=== PATIENT | male | born 1970 | race Hispanic/Latino ===

== ENCOUNTER 2020-03-05 11:21 | Inpatient (IN) | payer OTHER ==
[~2020-03-05] VITALS: Ht 162.6 cm; Wt 76.2 kg
[2020-03-05] MEDS: AZITHROMYCIN 500MG+NS 250ML 250 ML IV SCH (15:00)
[2020-03-05] MEDS: CEFTRIAXONE SODIUM 1 GM IVP SCH (15:00)
[2020-03-05] MEDS ORDERED: ONDANSETRON HCL 4 MG/2 ML VIAL IVP PRN (15:00)
[2020-03-05] MEDS ORDERED: AZITHROMYCIN 250 MG TABLET PO ONE (15:19)
[2020-03-05] MEDS ORDERED: CEFTRIAXONE SODIUM 1 GM ONE (15:19)
[2020-03-05] MEDS ORDERED: SODIUM CHLORIDE 0.9% 50 ML IV ONE (15:21)
[2020-03-05] MEDS ORDERED: GLUCAGON 1MG KIT 1 MG ML IM PRN (18:00)
[2020-03-05] MEDS ORDERED: HYDRALAZINE HCL 20 MG/ML VIAL IV PRN (18:00)
[2020-03-05] MEDS ORDERED: ACETAMINOPHEN 325 MG TAB PO PRN ×2 (18:00)
[2020-03-05] MEDS ORDERED: DEXTROSE 50%-WATER 50 ML DISP.SYRIN IV PRN (18:00)
[2020-03-05 19:15] VITALS: BP 107/66; PULSE 82; RESP 18; TEMP 98
[2020-03-05] MEDS ORDERED: PHARMACY COMMUNICATION MISC SCH (19:45)
[2020-03-05] MEDS: INSULIN HUMULIN R 100 UNIT/ML 3ML SQ SCH (21:00)
[2020-03-05] MEDS: FAMOTIDINE/PF 20 MG/2 ML VIAL IV SCH (22:10)
[2020-03-05 23:47] VITALS: BP 108/64; PULSE 76; RESP 18; TEMP 98.1
[2020-03-06 03:45] VITALS: BP 106/74; PULSE 85; RESP 17; TEMP 98.1
[2020-03-06] MEDS: CEFTRIAXONE SODIUM 1 GM IVP SCH ×2 (05:25→15:45)
[2020-03-06] MEDS: INSULIN HUMULIN R 100 UNIT/ML 3ML SQ SCH ×5 (06:06→20:50)
[2020-03-06 08:00] VITALS: BP 115/67; PULSE 92; RESP 18; TEMP 98.8
[2020-03-06] MEDS ORDERED: ENOXAPARIN SODIUM 30 MG/0.3 ML SQ SCH (09:00)
[2020-03-06] MEDS ORDERED: ENOXAPARIN SODIUM 80 MG/0.8 ML SQ SCH (09:00)
[2020-03-06] MEDS: FAMOTIDINE/PF 20 MG/2 ML VIAL IV SCH ×2 (10:40→20:50)
[2020-03-06 11:45] VITALS: BP 111/61; PULSE 78; RESP 19; TEMP 97.5
--- NOTE | 2020-03-06 15:26 | NUR ---
RD NOTIFICATION Diagnosis: R/U TB, Possible Lung mass as per EMR. Pt with 75gm CCD in [address]. No report of GI distress. PCM malnutrition. A1C 12.4. Pt with SOB x6 mos as per EMR. 8% weight loss over 6 mos. Recommend 60mL ProMod BID. RD to follow up with nutrition education. Please notify RD as additional nutrition concerns arise. Thank you.
[2020-03-06] MEDS: AZITHROMYCIN 500MG+NS 250ML 250 ML IV SCH (15:45)
[2020-03-06 16:00] VITALS: BP 113/67; PULSE 78; RESP 18; TEMP 97.8
--- NOTE | 2020-03-06 18:18 | NUR ---
SPOKE TO PATIENT VIA PHONE FOR DC PLANNING LIVES WITH [facility], WHO WILL PROVID TRANSPORT HOME, NO DME, NO HOME HEALTH, HAS PROVIDE SERVICES > 30 HRS WEEK, BUT NOT SURE, DISABLE SEOCND OT POOR VISION FOR SEVERAL YEARS. NO GLUCOMETER, NEBULIZER, OXYGEN, WKR, ETC. DCP IS HOME CM TO FOLLOW. CXR OMINOUS WITH DIAGNOSTICS PENDING Addendum: 03/06/20 at 1824 by LANDON PEDRO RN CM Amended: Links added.
[2020-03-06 19:54] VITALS: BP 108/66; PULSE 79; RESP 20; TEMP 99.3
[2020-03-06] MEDS: INSULIN GLARGINE 100 UNITS/ML 10 ML VIAL SQ SCH (20:57)
[2020-03-06 23:43] VITALS: BP 100/59; PULSE 87; RESP 20; TEMP 102.2
[2020-03-07] MEDS: CEFTRIAXONE SODIUM 1 GM IVP SCH ×2 (03:05→16:15)
[2020-03-07 04:11] VITALS: BP 105/68; PULSE 70; RESP 18; TEMP 97.5
[2020-03-07] MEDS: INSULIN HUMULIN R 100 UNIT/ML 3ML SQ SCH ×7 (05:53→20:05)
[2020-03-07] MEDS: INSULIN GLARGINE 100 UNITS/ML 10 ML VIAL SQ SCH ×2 (06:34→20:37)
[2020-03-07] MEDS ORDERED: ENOXAPARIN SODIUM 80 MG/0.8 ML SQ SCH (09:00)
[2020-03-07 09:35] VITALS: BP 103/60; PULSE 73; RESP 20; TEMP 97.5
[2020-03-07] MEDS: ENOXAPARIN SODIUM 40 MG/0.4 ML SYRINGE SQ SCH (10:28)
[2020-03-07] MEDS: FAMOTIDINE/PF 20 MG/2 ML VIAL IV SCH ×2 (10:28→20:31)
[2020-03-07] MEDS: ISONIAZID 300 MG TAB PO SCH (12:56)
[2020-03-07] MEDS: PYRIDOXINE HCL 50 MG TABLET PO SCH (12:56)
[2020-03-07] MEDS: RIFAMPIN 300 MG CAPSULE PO SCH ×2 (12:56→23:42)
[2020-03-07] MEDS: ETHAMBUTOL HCL 400 MG TABLET PO SCH (12:57)
[2020-03-07 13:18] VITALS: BP 111/66; PULSE 93; RESP 20; TEMP 98.8
[2020-03-07 16:49] VITALS: BP 110/65; PULSE 86; RESP 18; TEMP 102.9
--- NOTE | 2020-03-07 19:50 | NUR ---
PM Assessment Received pt pleasantly conversant stating he is feeling a lot better at this time, routine assessment done, plan of care discuss, reminded too remain in his room as reported (+) for TB, agreed & always kept his mask on when someone comes in the room. Pt IV access noted leaking, discontinued aseptically with catheter tip intact, new access initiated x 1 attempt aseptically with good blood return. Pt currently denies discomfort.
[2020-03-07 20:50] VITALS: BP 103/64; PULSE 74; RESP 19; TEMP 98.6
[2020-03-07 23:51] VITALS: BP 120/72; PULSE 82; RESP 20; TEMP 99.3
[2020-03-08] MEDS: CEFTRIAXONE SODIUM 1 GM IVP SCH (03:23)
[2020-03-08 03:55] VITALS: BP 103/59; PULSE 83; RESP 20; TEMP 102.4
--- NOTE | 2020-03-08 03:58 | NUR ---
Re: AFB sputum collection Phoned Laboratory spoke with Satya to verify if we have completed sputum for AFB collection, stated still pending 2 more. Approach pt & instructed / provided with sputum specimen cup to collect phlegm not saliva & notify me once available.
--- NOTE | 2020-03-08 06:06 | NUR ---
Re: AFB sputum Collected x2 sputum for my shift, pending confirmation from laboratory if specimen is acceptable. Spoke with Queen from the lab to let us know if we need to re-collect.
--- NOTE | 2020-03-08 06:07 | NUR ---
Re: BS 60 Reported BS 60, pt re-assess, asymptomatic, [place] juice given at this time.
[2020-03-08] MEDS: INSULIN HUMULIN R 100 UNIT/ML 3ML SQ SCH ×7 (06:09→21:00)
[2020-03-08] MEDS: INSULIN GLARGINE 100 UNITS/ML 10 ML VIAL SQ SCH ×2 (07:30→21:00)
[2020-03-08 08:41] VITALS: BP 102/67; PULSE 75; RESP 21; TEMP 98.2
[2020-03-08 12:32] VITALS: BP 104/65; PULSE 69; RESP 20; TEMP 98.9
[2020-03-08] MEDS: FAMOTIDINE/PF 20 MG/2 ML VIAL IV SCH ×2 (13:03→21:37)
[2020-03-08] MEDS: PYRAZINAMIDE 500 MG TABLET PO SCH (13:04)
[2020-03-08] MEDS: RIFAMPIN 300 MG CAPSULE PO SCH ×2 (13:05→21:37)
[2020-03-08] MEDS: ZOSYN 3.375GM+NS 50ML 50 ML IV SCH ×2 (13:05→18:32)
[2020-03-08] MEDS: ETHAMBUTOL HCL 400 MG TABLET PO SCH (13:06)
[2020-03-08] MEDS: PYRIDOXINE HCL 50 MG TABLET PO SCH (13:07)
[2020-03-08] MEDS: ISONIAZID 300 MG TAB PO SCH (13:07)
[2020-03-08] MEDS: ENOXAPARIN SODIUM 40 MG/0.4 ML SYRINGE SQ SCH (13:08)
[2020-03-08 19:11] VITALS: BP 105/67; PULSE 85; RESP 20; TEMP 98.6
[2020-03-08 19:30] VITALS: BP 111/73; PULSE 69; RESP 18; TEMP 99.1
[2020-03-08 23:41] VITALS: BP 101/74; PULSE 73; RESP 18; TEMP 99
[2020-03-09] MEDS: ZOSYN 3.375GM+NS 50ML 50 ML IV SCH ×3 (03:01→18:10)
[2020-03-09 04:00] VITALS: BP 108/79; PULSE 76; RESP 18; TEMP 98.3
[2020-03-09] MEDS: INSULIN HUMULIN R 100 UNIT/ML 3ML SQ SCH ×7 (07:30→21:00)
[2020-03-09] MEDS: INSULIN GLARGINE 100 UNITS/ML 10 ML VIAL SQ SCH ×2 (07:30→21:56)
[2020-03-09 09:22] VITALS: BP 96/65; PULSE 84; RESP 16; TEMP 98.8
[2020-03-09] MEDS: ETHAMBUTOL HCL 400 MG TABLET PO SCH (10:25)
[2020-03-09] MEDS: ENOXAPARIN SODIUM 40 MG/0.4 ML SYRINGE SQ SCH (10:26)
[2020-03-09] MEDS: PYRAZINAMIDE 500 MG TABLET PO SCH (10:26)
[2020-03-09] MEDS: ISONIAZID 300 MG TAB PO SCH (10:26)
[2020-03-09] MEDS: RIFAMPIN 300 MG CAPSULE PO SCH ×2 (10:27→22:16)
[2020-03-09] MEDS: FAMOTIDINE/PF 20 MG/2 ML VIAL IV SCH ×2 (10:27→21:35)
[2020-03-09] MEDS: PYRIDOXINE HCL 50 MG TABLET PO SCH (10:27)
[2020-03-09 13:36] VITALS: BP 102/64; PULSE 72; RESP 20; TEMP 97.9
[2020-03-09 20:00] VITALS: BP_SYST 100; BP_SYST 105; BP_DIAS 61; BP_DIAS 67; PULSE 62; PULSE 70; RESP 18; TEMP 97.7; TEMP 97.9
[2020-03-10] VITALS: BP 104/56; PULSE 74; RESP 18; TEMP 97.7
[2020-03-10] MEDS: ZOSYN 3.375GM+NS 50ML 50 ML IV SCH ×3 (03:33→18:33)
[2020-03-10 04:00] VITALS: BP_SYST 110; BP_SYST 136; BP_DIAS 67; BP_DIAS 70; PULSE 68; PULSE 83; RESP 18; TEMP 97.7
[2020-03-10] MEDS: INSULIN HUMULIN R 100 UNIT/ML 3ML SQ SCH ×7 (06:28→21:00)
[2020-03-10] MEDS: INSULIN GLARGINE 100 UNITS/ML 10 ML VIAL SQ SCH ×2 (07:50→21:21)
[2020-03-10 08:49] VITALS: BP 108/65; PULSE 71; RESP 18; TEMP 97.5
[2020-03-10] MEDS: ENOXAPARIN SODIUM 40 MG/0.4 ML SYRINGE SQ SCH (09:30)
[2020-03-10] MEDS: FAMOTIDINE/PF 20 MG/2 ML VIAL IV SCH ×2 (09:31→19:51)
[2020-03-10] MEDS: PYRAZINAMIDE 500 MG TABLET PO SCH (09:31)
[2020-03-10] MEDS: RIFAMPIN 300 MG CAPSULE PO SCH (10:24)
[2020-03-10] MEDS: ETHAMBUTOL HCL 400 MG TABLET PO SCH (10:24)
[2020-03-10] MEDS: ISONIAZID 300 MG TAB PO SCH (10:24)
[2020-03-10] MEDS: PYRIDOXINE HCL 50 MG TABLET PO SCH (10:25)
[2020-03-10 11:58] VITALS: BP 103/64; PULSE 76; RESP 20; TEMP 97.9
--- NOTE | 2020-03-10 15:26 | NUR ---
RD FOLLOW UP Pt continues to tolerate 75gm CCD diet order. 60mL ProMod protein supplementation in place. Pt positive for Pulmonary TB. Pending COVID test result. H/H 7.2/23.6, Alk 223, Alb 1.6. Recommend Glucerna BID RD to continue to monitor. Please notify as additional nutrition concerns arise. Thank you.
[2020-03-10] MEDS ORDERED: EPOETIN ALFA 10,000 UNIT/ML VIAL SQ SCH (15:30)
[2020-03-10] MEDS ORDERED: COMPOUND IV MISC 1 EACH IVSOLN MISC PRN (16:15)
[2020-03-10 16:44] VITALS: BP 109/78; PULSE 74; RESP 20; TEMP 97.9
[2020-03-10] MEDS: IRON SUCROSE COMPLEX 100 MG in SODIUM CHLORIDE 0.9% 50 ML IV SCH (18:35)
[2020-03-10 19:30] VITALS: BP 117/79; PULSE 72; RESP 18; TEMP 97.9
[2020-03-11] VITALS: BP 112/68; PULSE 69; RESP 18; TEMP 98
[2020-03-11] MEDS: RIFAMPIN 300 MG CAPSULE PO SCH ×3 (00:36→21:58)
[2020-03-11] MEDS: ZOSYN 3.375GM+NS 50ML 50 ML IV SCH ×3 (03:07→18:30)
[2020-03-11 04:00] VITALS: BP 100/63; PULSE 71; RESP 18; TEMP 99.3
--- NOTE | 2020-03-11 07:15 | NUR ---
Shan MOTOR ANALYST here to do his rounds informed him of patient's low blood sugar level this morning and a few days ago. informed patient's fingerstick in the 100, no more then 135. Orders received to change Lantus 10 units with breakfast only. Patient made aware verbalized understanding.
[2020-03-11] MEDS: INSULIN GLARGINE 100 UNITS/ML 10 ML VIAL SQ SCH (07:26)
[2020-03-11] MEDS: INSULIN HUMULIN R 100 UNIT/ML 3ML SQ SCH ×7 (07:30→20:59)
[2020-03-11 08:00] VITALS: BP 106/64; PULSE 77; RESP 17; TEMP 98.4
[2020-03-11] MEDS ORDERED: INSULIN GLARGINE 100 UNITS/ML 10 ML VIAL SQ SCH (08:00)
[2020-03-11] MEDS: PYRAZINAMIDE 500 MG TABLET PO SCH (08:46)
[2020-03-11] MEDS: FAMOTIDINE/PF 20 MG/2 ML VIAL IV SCH ×2 (08:46→20:58)
[2020-03-11] MEDS: ENOXAPARIN SODIUM 40 MG/0.4 ML SYRINGE SQ SCH (08:46)
[2020-03-11] MEDS: ETHAMBUTOL HCL 400 MG TABLET PO SCH (11:06)
[2020-03-11] MEDS: ISONIAZID 300 MG TAB PO SCH (11:06)
[2020-03-11] MEDS: PYRIDOXINE HCL 50 MG TABLET PO SCH (11:06)
--- NOTE | 2020-03-11 11:56 | NUR ---
DR. JOE SPOKE TO MD VIA TELEPHONE REGARDING CONSULT. MD STATES NO GI INTERVENTIONS AT THIS TIME UNTIL PATIENT COMPLETES TREATMENT CURRENT RESPIRATORY INFECTION. DR. JOE ALSO ASKED TO ORDER REPEAT COVID TEST.
[2020-03-11 12:00] VITALS: BP 115/69; PULSE 68; RESP 18; TEMP 97.9
--- NOTE | 2020-03-11 12:30 | NUR ---
DR. MALINDA WINKLER ROUNDING AT THIS TIME. INFORMED MD THAT INFECTION CONTROL NURSE German LY RN STATES THAT LOCAL HEALTH DEPARTMENT RECOMMENDS RIFAMPIN DOSE TO BE DECREASED TO 300MG. DR. PETTY ALSO STATES THAT REPEAT COVID TEST RECOMMENDED BY DR. JOE IS NOT NEEDED.
--- NOTE | 2020-03-11 14:52 | NUR ---
CM Note[facility] for [facility] of care. Verbalized will see patient once dc from hospital. Patient to call Health Dept to schedule appointment once dc'd. Given address: [address] [place] [id number] ph: . Verbalized they are open tomorrow, but close 03/13-03/15, clinic opens again 03/16. Patient given information and instructions, verbalized understanding, will call health dept to schedule appointment once pt ready to DC. Primary nurse aware. CM to cont to follow up.
[2020-03-11 16:00] VITALS: BP 104/69; PULSE 72; RESP 19; TEMP 97.5
[2020-03-11] MEDS: IRON SUCROSE COMPLEX 100 MG in SODIUM CHLORIDE 0.9% 50 ML IV SCH (18:30)
[2020-03-11 20:00] VITALS: BP 110/76; PULSE 82; RESP 18; TEMP 97.1
[2020-03-12] VITALS: BP 105/63; PULSE 74; RESP 17; TEMP 98.4
[2020-03-12] MEDS: ZOSYN 3.375GM+NS 50ML 50 ML IV SCH ×3 (02:33→18:45)
[2020-03-12 04:00] VITALS: BP 98/57; PULSE 78; RESP 20; TEMP 97.6
[2020-03-12] MEDS: INSULIN HUMULIN R 100 UNIT/ML 3ML SQ SCH ×7 (07:11→20:47)
[2020-03-12 07:35] VITALS: BP 103/67; PULSE 70; RESP 16; TEMP 97.9
[2020-03-12] MEDS: INSULIN GLARGINE 100 UNITS/ML 10 ML VIAL SQ SCH (07:49)
[2020-03-12] MEDS: FAMOTIDINE/PF 20 MG/2 ML VIAL IV SCH ×2 (08:03→20:29)
[2020-03-12] MEDS: PYRAZINAMIDE 500 MG TABLET PO SCH (08:03)
[2020-03-12] MEDS: ENOXAPARIN SODIUM 40 MG/0.4 ML SYRINGE SQ SCH (08:11)
[2020-03-12 10:45] VITALS: BP 106/67; PULSE 81; RESP 18; TEMP 97.7
[2020-03-12 10:52] VITALS: BP_SYST 106; BP_SYST 139; BP_DIAS 67; BP_DIAS 74; PULSE 81; PULSE 86; RESP 18; TEMP 97.7
[2020-03-12] MEDS: RIFAMPIN 300 MG CAPSULE PO SCH ×2 (11:04→20:29)
[2020-03-12] MEDS: PYRIDOXINE HCL 50 MG TABLET PO SCH (11:04)
[2020-03-12] MEDS: ETHAMBUTOL HCL 400 MG TABLET PO SCH (11:04)
[2020-03-12] MEDS: ISONIAZID 300 MG TAB PO SCH (11:04)
[2020-03-12] MEDS: IRON SUCROSE COMPLEX 100 MG in SODIUM CHLORIDE 0.9% 50 ML IV SCH (17:00)
[2020-03-12 19:10] VITALS: BP 114/70; PULSE 74; RESP 18; TEMP 98.1
[2020-03-13] VITALS (7 sets, daily range): BP systolic 102–121; BP diastolic 65–74; PULSE 69–80; RESP 14–19; TEMP 97.5–98.1
[2020-03-13] MEDS: ZOSYN 3.375GM+NS 50ML 50 ML IV SCH ×3 (03:20→18:45)
--- NOTE | 2020-03-13 03:29 | NUR ---
ROUNDS PATIENT RESTING IN BED WITH OU CLOSED. EASILY AROUSED. NO COMPLAINTS OF PAIN VOICED AT THIS TIME. VITALS STABLE. AFEBRILE. RESP EVEN AND UNLABORED. NO SOB NOTED. UP AD JESSICA. CALL LIGHT WITHIN REACH. AIRBORNE PRECAUTIONS IN PLACE. NO SIGNS OF DISTRESS NOTED. CALL LIGHT WITHIN REACH. WILL CONTINUE TO BE OBSERVED. Addendum: 03/13/20 at 0331 by GILLIAN GRANT RN RN Amended: Links added.
[2020-03-13] MEDS: INSULIN HUMULIN R 100 UNIT/ML 3ML SQ SCH ×7 (07:30→21:00)
[2020-03-13] MEDS: RIFAMPIN 300 MG CAPSULE PO SCH ×2 (09:24→23:08)
[2020-03-13] MEDS: PYRIDOXINE HCL 50 MG TABLET PO SCH (09:25)
[2020-03-13] MEDS: ETHAMBUTOL HCL 400 MG TABLET PO SCH (09:25)
[2020-03-13] MEDS: ISONIAZID 300 MG TAB PO SCH (09:25)
[2020-03-13] MEDS: PYRAZINAMIDE 500 MG TABLET PO SCH (09:25)
[2020-03-13] MEDS: FAMOTIDINE/PF 20 MG/2 ML VIAL IV SCH ×2 (09:25→23:08)
[2020-03-13] MEDS: ENOXAPARIN SODIUM 40 MG/0.4 ML SYRINGE SQ SCH (09:31)
[2020-03-13] MEDS: INSULIN GLARGINE 100 UNITS/ML 10 ML VIAL SQ SCH (09:35)
[2020-03-13] MEDS: IRON SUCROSE COMPLEX 100 MG in SODIUM CHLORIDE 0.9% 50 ML IV SCH (15:20)
[2020-03-14] MEDS: ZOSYN 3.375GM+NS 50ML 50 ML IV SCH ×3 (03:08→18:45)
[2020-03-14 04:28] VITALS: BP 132/71; PULSE 71; RESP 18; TEMP 97.7
--- NOTE | 2020-03-14 05:02 | NUR ---
CRITICAL LAB VALUE PAGED ONCALL. SPOKE WITH KAPIL FINE, WAS ORDERED TO CONSULT ERIN FOR CONT ELEVATED PLT COUNT. ORDER PLACED IN [facility], WILL PASS ON REPORT TO DAY SHIFT NURSE.
[2020-03-14] MEDS: INSULIN HUMULIN R 100 UNIT/ML 3ML SQ SCH ×7 (06:38→21:00)
[2020-03-14] MEDS: FAMOTIDINE/PF 20 MG/2 ML VIAL IV SCH ×2 (08:39→22:20)
[2020-03-14] MEDS: PYRAZINAMIDE 500 MG TABLET PO SCH (08:39)
[2020-03-14] MEDS: ENOXAPARIN SODIUM 40 MG/0.4 ML SYRINGE SQ SCH (08:40)
[2020-03-14] MEDS ORDERED: CYANOCOBALAMIN (VITAMIN B-12) 1,000 MCG TABLET PO SCH (10:15)
[2020-03-14] MEDS: PYRIDOXINE HCL 50 MG TABLET PO SCH (11:14)
[2020-03-14] MEDS: RIFAMPIN 300 MG CAPSULE PO SCH ×2 (11:14→22:20)
[2020-03-14] MEDS: ISONIAZID 300 MG TAB PO SCH (11:15)
[2020-03-14] MEDS: ETHAMBUTOL HCL 400 MG TABLET PO SCH (11:21)
[2020-03-14 11:48] VITALS: BP 119/77; PULSE 93; RESP 18; TEMP 98.1
[2020-03-14] MEDS: INSULIN GLARGINE 100 UNITS/ML 10 ML VIAL SQ SCH (11:54)
[2020-03-14 16:00] VITALS: BP 115/69; PULSE 71; RESP 19; TEMP 97.5
[2020-03-14] MEDS ORDERED: VITAMIN B COMPLEX 1 CAPSULE PO SCH (17:45)
[2020-03-14] MEDS: IRON SUCROSE COMPLEX 100 MG in SODIUM CHLORIDE 0.9% 50 ML IV SCH (18:04)
--- NOTE | 2020-03-14 19:50 | NUR ---
LEFT EYE PROSTHESIS Addendum: 03/14/20 at 2355 by MAXIM CLIFTON RN RN Amended: Links added.
[2020-03-14 21:16] VITALS: BP 120/75; PULSE 73; RESP 19; TEMP 98.1
[2020-03-15 00:09] VITALS: BP 125/73; PULSE 80; RESP 20; TEMP 97.8
[2020-03-15] MEDS: ZOSYN 3.375GM+NS 50ML 50 ML IV SCH ×3 (02:33→18:34)
[2020-03-15 04:36] VITALS: BP 125/73; PULSE 74; RESP 20; TEMP 98.1
[2020-03-15] MEDS: INSULIN HUMULIN R 100 UNIT/ML 3ML SQ SCH ×7 (05:57→16:30)
[2020-03-15 08:00] VITALS: BP 108/61; PULSE 72; RESP 17; TEMP 97.7
--- NOTE | 2020-03-15 08:00 | NUR ---
AM SHIFT ASSESSMENT. ANXIOUS TO GO HOME AND ASKING ABOUT TB MEDICATIONS.
[2020-03-15] MEDS: RIFAMPIN 300 MG CAPSULE PO SCH ×2 (09:49→21:47)
[2020-03-15] MEDS: VITAMIN B COMPLEX 1 CAPSULE PO SCH (09:50)
[2020-03-15] MEDS: FOLIC ACID/VITAMIN B COMP W-C 1 CAP TAB PO SCH (09:50)
[2020-03-15] MEDS: PYRIDOXINE HCL 50 MG TABLET PO SCH (09:51)
[2020-03-15] MEDS: FAMOTIDINE/PF 20 MG/2 ML VIAL IV SCH ×2 (09:51→21:47)
[2020-03-15] MEDS: ISONIAZID 300 MG TAB PO SCH (09:51)
[2020-03-15] MEDS: ETHAMBUTOL HCL 400 MG TABLET PO SCH (09:51)
[2020-03-15] MEDS: PYRAZINAMIDE 500 MG TABLET PO SCH (09:52)
[2020-03-15] MEDS: ENOXAPARIN SODIUM 40 MG/0.4 ML SYRINGE SQ SCH (09:53)
[2020-03-15] MEDS: INSULIN GLARGINE 100 UNITS/ML 10 ML VIAL SQ SCH (10:02)
[2020-03-15 12:00] VITALS: BP 105/69; PULSE 85; RESP 17; TEMP 97.9
[2020-03-15 16:00] VITALS: BP 109/76; PULSE 80; RESP 17; TEMP 98.1
[2020-03-15] MEDS: IRON SUCROSE COMPLEX 100 MG in SODIUM CHLORIDE 0.9% 50 ML IV SCH (17:27)
--- NOTE | 2020-03-15 18:08 | NUR ---
REMAINS ON AIRBORNE ISOLATION, N/C TODAY, MOVES ABOUT IN ROOM. GOOD APPETITE
[2020-03-15 21:09] VITALS: BP 117/72; PULSE 82; RESP 20; TEMP 98.8
[2020-03-15] MEDS ORDERED: SODIUM CHLORIDE 0.9% 250 ML IV ONE (21:43)
[2020-03-16 00:58] VITALS: BP 106/64; PULSE 74; RESP 20; TEMP 98.1
[2020-03-16] MEDS: ZOSYN 3.375GM+NS 50ML 50 ML IV SCH (03:02)
[2020-03-16 05:37] VITALS: BP 109/65; PULSE 71; RESP 19; TEMP 98.1
[2020-03-16] MEDS: INSULIN HUMULIN R 100 UNIT/ML 3ML SQ SCH ×2 (05:47)
[2020-03-16] MEDS: INSULIN GLARGINE 100 UNITS/ML 10 ML VIAL SQ SCH (09:26)
[2020-03-16] MEDS: VITAMIN B COMPLEX 1 CAPSULE PO SCH (09:27)
[2020-03-16] MEDS: FAMOTIDINE/PF 20 MG/2 ML VIAL IV SCH (09:27)
[2020-03-16] MEDS: FOLIC ACID/VITAMIN B COMP W-C 1 CAP TAB PO SCH (09:28)
[2020-03-16] MEDS: PYRAZINAMIDE 500 MG TABLET PO SCH (09:28)
[2020-03-16] MEDS: ENOXAPARIN SODIUM 40 MG/0.4 ML SYRINGE SQ SCH (09:29)
--- NOTE | 2020-03-16 10:15 | NUR ---
DISCHARGED pt discharged via wheelchair with home instructions states he will follow up with [facility] today Addendum: 03/16/20 at 1319 by CAIN JEFFERS RN RN Amended: Links added.
--- NOTE | 2020-03-16 10:15 | NUR ---
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
== END 2020-03-16 10:25 | disposition home or self-care (01) | DRG 871 ==
LOC: EDH 11:21 → EDHIP 14:56 → 3CH 19:12
PROVIDERS: ADMIT Hospitalist; ATTEND Hospitalist
DX: A41.9 Sepsis, unspecified organism (principal); J96.91 Respiratory failure, unspecified with hypoxia; J18.9 Pneumonia, unspecified organism; A15.0 Tuberculosis of lung; C94.6 Myelodysplastic disease, not elsewhere classified; E11.9 Type 2 diabetes mellitus without complications; I10 Essential (primary) hypertension; E78.5 Hyperlipidemia, unspecified; D50.9 Iron deficiency anemia, unspecified; R63.4 Abnormal weight loss; R53.81 Other malaise; Z20.828 Contact with and (suspected) exposure to other viral communicable diseases; Z68.28 Body mass index [BMI] 28.0-28.9, adult; Z87.891 Personal history of nicotine dependence; Z83.3 Family history of diabetes mellitus

== ENCOUNTER 2021-07-25 06:20 | Inpatient (IN) | payer OTHER ==
[~2021-07-25] VITALS: Ht 157.5 cm; Wt 92.9 kg
[~2021-07-25 06:20] MED LIST: ATOR20TA65 PO; LOSA25TA41 PO; METF-444 PO
[2021-07-25 06:38] LABS: BASOPHILS % (AUTO) 0.4 % (0.0-5.0); EOSINOPHILS % (AUTO) 0.4 % (0.0-8.0); HEMATOCRIT 42.3 % (42-54); LYMPHOCYTES % (AUTO) 10.3 % (21.0-51.0); MEAN CORPUSCULAR HEMOGLOBIN 28.9 pg (27.0-33.0); MEAN CORPUSCULAR HGB CONC 33.3 g/dL (32.0-36.0); MEAN CORPUSCULAR VOLUME 86.7 fL (79-99); MONOCYTES % (AUTO) 4.9 % (3.0-13.0); NEUTROPHILS % (AUTO) 83.6 % (40.0-77.0); PLATELET COUNT (AUTO) 278 K/uL (130-400); RED BLOOD CELL COUNT(AUTO) 4.88 MIL/uL (4.50-6.20); RED CELL DISTRIBUTION WIDTH 13.2 % (11.0-15.5); WHITE BLOOD COUNT (AUTO) 18.4 K/uL (4.8-10.8)
[2021-07-25] MEDS ORDERED: ONDANSETRON 4MG INJ ONE (06:45)
[2021-07-25] MEDS ORDERED: MORPHINE 4 MG SYG ONE (06:45)
[2021-07-25 06:53] LABS: ALBUMIN 3.8 g/dL (3.5-5.0); CREATININE 2.2 mg/dL (0.5-1.5); POTASSIUM 4.3 mmol/L (3.5-5.1)
[2021-07-25 06:56] LABS: BILIRUBIN,TOTAL 0.4 mg/dL (0.2-1.0); TOTAL PROTEIN, SERUM 8.4 g/dL (6.0-8.3)
[2021-07-25] MEDS ORDERED: ONDANSETRON 4MG INJ IVP ONE (07:00)
[2021-07-25] MEDS ORDERED: MORPHINE 4 MG SYG IV ONE (07:00)
[2021-07-25 07:24] LABS: APPEARANCE,URINE Cloudy (CLEAR); BILIRUBIN,URINE Negative (NEGATIVE); COLOR,URINE Yellow (YELLOW); GLUCOSE, URINE (UA) >=1000 mg/dL (NEGATIVE); KETONES,URINE Negative (NEGATIVE); LEUKOCYTE ESTERASE ,URINE Trace (NEGATIVE); NITRATE,URINE Negative (NEGATIVE); OCCULT BLOOD,URINE Small (NEGATIVE); PROTEIN,URINE 300 mg/dL (NEGATIVE); UROBILINOGEN,URINE 0.2 mg/dL (0.2-1.0)
[2021-07-25 07:47] LABS: BACTERIA,URINE Moderate /HPF (None Seen)
[2021-07-25] MEDS ORDERED: FENTANYL CITRATE PF 50 MCG/1 ML 2ML VIAL ONE (09:07)
[2021-07-25] MEDS ORDERED: ONDANSETRON 4MG INJ IV PRN (09:30)
[2021-07-25] MEDS ORDERED: DiphenhydrAMINE HCL 50 MG/ML VIAL IV PRN (09:30)
[2021-07-25] MEDS ORDERED: LACTULOSE 20 GM/30 ML UDCUP PO PRN (09:30)
[2021-07-25] MEDS ORDERED: GUAIFENESIN-DM 200/20 MG 10 ML PO PRN (09:30)
[2021-07-25] MEDS ORDERED: CEFTRIAXONE 1G VIAL IVP ONE (09:30)
[2021-07-25] MEDS ORDERED: DIPHENHYDRAMINE HCL 25 MG CAPSULE PO PRN (09:30)
[2021-07-25] MEDS ORDERED: FENTANYL CITRATE PF 50 MCG/1 ML 2ML VIAL IVP ONE (09:30)
[2021-07-25] MEDS ORDERED: ACETAMINOPHEN 325 MG TAB PO PRN (09:30)
[2021-07-25] MEDS ORDERED: DEXTROSE 50%-WATER 50 ML DISP.SYRIN IV PRN (09:30)
[2021-07-25] MEDS ORDERED: GLUCAGON 1MG KIT 1 MG ML IM PRN (09:30)
[2021-07-25] MEDS ORDERED: HYDRALAZINE 20MG/ML VIAL IV PRN (09:30)
[2021-07-25] MEDS ORDERED: 0.9%NACL 1000ML 1,000 ML IV ONE (09:56)
[2021-07-25 10:15] LABS: AMPHET/METH SCREEN,URINE NEGATIVE (NEGATIVE); BARBITURATE SCREEN, URINE NEGATIVE (NEGATIVE); BENZODIAZEPINES SCREEN,URINE NEGATIVE (NEGATIVE); CANNABINOID SCREEN,URINE NEGATIVE (NEGATIVE); COCAINE SCREEN,URINE NEGATIVE (NEGATIVE); OPIATE SCREEN,URINE NEGATIVE (NEGATIVE); PHENCYCLIDINE SCREEN,URINE NEGATIVE (NEGATIVE)
[2021-07-25 10:16] LABS: HEMOGLOBIN A1C 11.3 % (4.0-6.0)
[2021-07-25 10:17] LABS: CHOLESTEROL 338 mg/dL (<200); HDL CHOLESTEROL 51 mg/dL (29-71); LDL DIRECT 200 mg/dL (0-99); TRIGLYCERIDES 386 mg/dL (30-200)
[2021-07-25] MEDS: CEFTRIAXONE 1G VIAL IV SCH (11:04)
[2021-07-25] MEDS: FAMOTIDINE 20MG VIAL IV SCH (11:05)
[2021-07-25] MEDS ORDERED: MORPHINE 2 MG SYG ONE (11:16)
[2021-07-25] MEDS: ACETAMINOPHEN 325 MG TAB PO PRN (11:23)
[2021-07-25] MEDS ORDERED: MORPHINE 2 MG SYG IVP PRN (11:30)
[2021-07-25] MEDS: INSULIN HUMULIN R 100 UNIT/ML 3ML SQ SCH ×5 (14:20→21:49)
[2021-07-25] MEDS ORDERED: HYDROMORPHONE 1 MG INJ IVP PRN (15:00)
[2021-07-25] MEDS: KETOROLAC 15MG/ML VIAL (15MG/ML) IV PRN (15:16)
[2021-07-25 16:00] VITALS: BP 130/74
[2021-07-25 16:07] LABS: CREATININE,URINE RANDOM 114 mg/dL (30-135); SODIUM,URINE RANDOM 31 mmol/l (40-220)
[2021-07-25] MEDS: GUAIFENESIN-DM 200/20 MG 10 ML PO SCH ×2 (16:09→21:30)
[2021-07-25 20:00] VITALS: BP 144/79
[2021-07-25] MEDS: INSULIN GLARGINE 100 UNITS/ML 10 ML VIAL SQ SCH (21:50)
[2021-07-25 23:36] VITALS: BP 161/78
[2021-07-26 03:50] VITALS: BP 126/78
[2021-07-26] MEDS: GUAIFENESIN-DM 200/20 MG 10 ML PO SCH ×4 (04:10→22:25)
[2021-07-26] MEDS: KETOROLAC 15MG/ML VIAL (15MG/ML) IV PRN (04:13)
[2021-07-26 04:51] LABS: BASOPHILS % (AUTO) 0.5 % (0.0-5.0); EOSINOPHILS % (AUTO) 2.5 % (0.0-8.0); HEMATOCRIT 36.9 % (42-54); LYMPHOCYTES % (AUTO) 27.9 % (21.0-51.0); MEAN CORPUSCULAR HGB CONC 33.3 g/dL (32.0-36.0); MONOCYTES % (AUTO) 6.8 % (3.0-13.0); NEUTROPHILS % (AUTO) 61.9 % (40.0-77.0); PLATELET COUNT (AUTO) 238 K/uL (130-400); RED BLOOD CELL COUNT(AUTO) 4.24 MIL/uL (4.50-6.20); RED CELL DISTRIBUTION WIDTH 13.3 % (11.0-15.5); WHITE BLOOD COUNT (AUTO) 11.8 K/uL (4.8-10.8)
[2021-07-26 05:10] LABS: ALBUMIN 2.9 g/dL (3.5-5.0); BILIRUBIN,TOTAL 0.4 mg/dL (0.2-1.0); CREATININE 1.9 mg/dL (0.5-1.5); POTASSIUM 3.4 mmol/L (3.5-5.1); TOTAL PROTEIN, SERUM 7.1 g/dL (6.0-8.3)
[2021-07-26] MEDS: INSULIN HUMULIN R 100 UNIT/ML 3ML SQ SCH ×7 (06:17→22:32)
[2021-07-26] MEDS: KCL 20 MEQ ERTAB PO SCH (06:22)
[2021-07-26 07:52] LABS: ABG BASE EXCESS -3.8 mmol/L (-2.0-3.0); ABG HCO3 20.8 mmol/L (21.0-28.0); ABG OXYGEN SATURATION 96.4 % (95.0-99.0); ABG PCO2 37 mmHg (35-48)
[2021-07-26 08:24] VITALS: BP 128/74
[2021-07-26 11:11] VITALS: BP 110/70
[2021-07-26] MEDS: FAMOTIDINE 20MG VIAL IV SCH (11:42)
[2021-07-26] MEDS: CEFTRIAXONE 1G VIAL IV SCH (11:42)
[2021-07-26] MEDS: ENOXAPARIN SODIUM 40 MG/0.4 ML SYRINGE SQ SCH (11:43)
[2021-07-26 16:22] VITALS: BP 162/69
[2021-07-26 20:00] VITALS: BP 143/68
[2021-07-26] MEDS: INSULIN GLARGINE 100 UNITS/ML 10 ML VIAL SQ SCH (22:33)
[2021-07-26] MEDS: ACETAMINOPHEN 325 MG TAB PO PRN (22:37)
[2021-07-26] MEDS: ALBUTEROL 0.042% 1.25MG/3ML IH SCH (23:32)
[2021-07-27] VITALS: BP 127/68
[2021-07-27] MEDS: GUAIFENESIN-DM 200/20 MG 10 ML PO SCH ×2 (03:30→09:44)
[2021-07-27 04:00] VITALS: BP 131/69
[2021-07-27 05:18] LABS: BASOPHILS % (AUTO) 0.7 % (0.0-5.0); EOSINOPHILS % (AUTO) 5.3 % (0.0-8.0); HEMATOCRIT 35.6 % (42-54); LYMPHOCYTES % (AUTO) 32.9 % (21.0-51.0); MEAN CORPUSCULAR HEMOGLOBIN 28.6 pg (27.0-33.0); MEAN CORPUSCULAR HGB CONC 32.6 g/dL (32.0-36.0); MEAN CORPUSCULAR VOLUME 87.7 fL (79-99); MONOCYTES % (AUTO) 8.7 % (3.0-13.0); NEUTROPHILS % (AUTO) 52.2 % (40.0-77.0); PLATELET COUNT (AUTO) 223 K/uL (130-400); RED BLOOD CELL COUNT(AUTO) 4.06 MIL/uL (4.50-6.20); RED CELL DISTRIBUTION WIDTH 13.2 % (11.0-15.5); WHITE BLOOD COUNT (AUTO) 8.9 K/uL (4.8-10.8)
[2021-07-27] MEDS: KCL 20 MEQ ERTAB PO SCH (05:38)
[2021-07-27 05:46] LABS: CREATININE 1.4 mg/dL (0.5-1.5); POTASSIUM 4.1 mmol/L (3.5-5.1)
[2021-07-27] MEDS: KETOROLAC 15MG/ML VIAL (15MG/ML) IV PRN ×2 (05:56→20:58)
[2021-07-27] MEDS: ALBUTEROL 0.042% 1.25MG/3ML IH SCH ×3 (06:59→18:36)
[2021-07-27] MEDS: INSULIN HUMULIN R 100 UNIT/ML 3ML SQ SCH ×7 (07:30→21:10)
[2021-07-27] MEDS: ENOXAPARIN SODIUM 40 MG/0.4 ML SYRINGE SQ SCH (09:00)
[2021-07-27 09:23] VITALS: BP 134/76
[2021-07-27] MEDS: CEFTRIAXONE 1G VIAL IV SCH (09:43)
[2021-07-27] MEDS: FAMOTIDINE 20MG VIAL IV SCH (09:43)
[2021-07-27 11:48] VITALS: BP 124/57
[2021-07-27 16:43] VITALS: BP 137/69
[2021-07-27 20:00] VITALS: BP 148/75
[2021-07-27] MEDS: INSULIN GLARGINE 100 UNITS/ML 10 ML VIAL SQ SCH (21:08)
[2021-07-28] VITALS: BP 137/70
[2021-07-28] MEDS: ALBUTEROL 0.042% 1.25MG/3ML IH SCH ×2 (01:16→06:30)
[2021-07-28 04:00] VITALS: BP 132/75
[2021-07-28 05:15] LABS: BASOPHILS % (AUTO) 0.6 % (0.0-5.0); EOSINOPHILS % (AUTO) 6.6 % (0.0-8.0); HEMATOCRIT 34.9 % (42-54); LYMPHOCYTES % (AUTO) 34.1 % (21.0-51.0); MEAN CORPUSCULAR VOLUME 88.1 fL (79-99); NEUTROPHILS % (AUTO) 50.5 % (40.0-77.0); PLATELET COUNT (AUTO) 231 K/uL (130-400); RED BLOOD CELL COUNT(AUTO) 3.96 MIL/uL (4.50-6.20); RED CELL DISTRIBUTION WIDTH 13.2 % (11.0-15.5); WHITE BLOOD COUNT (AUTO) 9.7 K/uL (4.8-10.8)
[2021-07-28 05:23] LABS: CREATININE 1.3 mg/dL (0.5-1.5); POTASSIUM 4.3 mmol/L (3.5-5.1)
[2021-07-28] MEDS: KCL 20 MEQ ERTAB PO SCH (05:55)
[2021-07-28] MEDS: KETOROLAC 15MG/ML VIAL (15MG/ML) IV PRN (06:16)
[2021-07-28 08:04] VITALS: BP 156/68
[2021-07-28] MEDS: FAMOTIDINE 20MG VIAL IV SCH (10:00)
[2021-07-28] MEDS: CEFTRIAXONE 1G VIAL IV SCH (10:00)
[2021-07-28] MEDS: ENOXAPARIN SODIUM 40 MG/0.4 ML SYRINGE SQ SCH (10:02)
[2021-07-28] MEDS: INSULIN HUMULIN R 100 UNIT/ML 3ML SQ SCH ×4 (10:08→12:56)
[2021-07-28] MEDS ORDERED: KETO10 PO (10:47)
[2021-07-28 10:50] VITALS: BP 152/93
== END 2021-07-28 14:00 | disposition home or self-care (01) | DRG 199 ==
LOC: EDH 06:20 → EDHIP 09:17 → 4CH 11:53 → UNDODISIN 19:15 → 4CH 07-26 08:17
PROVIDERS: ADMIT Internal Medicine; ATTEND Internal Medicine
PROC: 5A09357 Assistance with Respiratory Ventilation, Less than 24 Consecutive Hours, Continuous Positive Airway Pressure (ICD-10-PCS; principal; 2021-07-25)
PROC: 0W9930Z Drainage of Right Pleural Cavity with Drainage Device, Percutaneous Approach (ICD-10-PCS; 2021-07-25)
PROC: 5A09357 Assistance with Respiratory Ventilation, Less than 24 Consecutive Hours, Continuous Positive Airway Pressure (ICD-10-PCS; 2021-07-26)
DX: J93.0 Spontaneous tension pneumothorax (principal); E11.00 Type 2 diabetes mellitus with hyperosmolarity without nonketotic hyperglycemic-hyperosmolar coma (NKHHC); I21.A1 Myocardial infarction type 2; S22.41XA Multiple fractures of ribs, right side, initial encounter for closed fracture; Z68.41 Body mass index [BMI] 40.0-44.9, adult; N39.0 Urinary tract infection, site not specified; N17.9 Acute kidney failure, unspecified; J93.82 Other air leak; G47.33 Obstructive sleep apnea (adult) (pediatric); E66.01 Morbid (severe) obesity due to excess calories; J98.2 Interstitial emphysema; Z20.822 Contact with and (suspected) exposure to COVID-19; I10 Essential (primary) hypertension; E78.5 Hyperlipidemia, unspecified; E78.00 Pure hypercholesterolemia, unspecified; W19.XXXA Unspecified fall, initial encounter; Y93.89 Activity, other specified; Y92.098 Other place in other non-institutional residence as the place of occurrence of the external cause; Y99.8 Other external cause status; Z86.11 Personal history of tuberculosis; Z87.891 Personal history of nicotine dependence; Z91.19 Patient's noncompliance with other medical treatment and regimen; Z83.3 Family history of diabetes mellitus; Z82.49 Family history of ischemic heart disease and other diseases of the circulatory system; D72.829 Elevated white blood cell count, unspecified
CPT/HCPCS: 36415; 36600; 70450; 71045; 71250; 74176; 80048; 80053; 80061; 80305; 81001; 82550; 82570; 82803; 82948; 83036; 83874; 83935; 84300; 84484; 85025; 85378; 87040; 87088; 87635; 93005; 93306; 93356; 94640; 94660; 94664; 99291; G0378; J0696; J1170; J1650; J1815; J1885; J2270; J2405; J3010; J3490; J7030

== ENCOUNTER 2022-04-02 21:23 | Emergency (ER) | payer OTHER ==
[~2022-04-02] VITALS: Ht 162.6 cm; Wt 86.2 kg
[~2022-04-02 21:23] MED LIST changes: +KETO10 PO
[2022-04-02] MEDS ORDERED: ONDANSETRON 4MG INJ IVP ONE (22:00)
[2022-04-02] MEDS ORDERED: 0.9%NACL 1000ML 1,000 ML IV SCH (22:00)
[2022-04-02 22:04] LABS: BASOPHILS % (AUTO) 1.2 % (0.0-5.0); EOSINOPHILS % (AUTO) 3.3 % (0.0-8.0); HEMATOCRIT 45.5 % (42-54); LYMPHOCYTES % (AUTO) 23.1 % (21.0-51.0); MEAN CORPUSCULAR HEMOGLOBIN 28.4 pg (27.0-33.0); MEAN CORPUSCULAR HGB CONC 33.4 g/dL (32.0-36.0); MEAN CORPUSCULAR VOLUME 84.9 fL (79-99); MONOCYTES % (AUTO) 13.1 % (3.0-13.0); PLATELET COUNT (AUTO) 273 K/uL (130-400); RED BLOOD CELL COUNT(AUTO) 5.36 MIL/uL (4.50-6.20); RED CELL DISTRIBUTION WIDTH 13.3 % (11.0-15.5); WHITE BLOOD COUNT (AUTO) 3.3 K/uL (4.8-10.8)
[2022-04-02 22:06] LABS: APPEARANCE,URINE CLEAR (CLEAR); BILIRUBIN,URINE NEGATIVE (NEGATIVE); COLOR,URINE YELLOW (YELLOW); GLUCOSE, URINE (UA) 500 mg/dL (NEGATIVE); KETONES,URINE 5 mg/dL (NEGATIVE); LEUKOCYTE ESTERASE ,URINE TRACE (NEGATIVE); NITRATE,URINE NEGATIVE (NEGATIVE); OCCULT BLOOD,URINE MODERATE (NEGATIVE); PROTEIN,URINE >=300 mg/dL (NEGATIVE); UROBILINOGEN,URINE 0.2 mg/dL (0.2-1.0)
[2022-04-02 22:09] LABS: BACTERIA,URINE Moderate /HPF (None Seen); MUCUS,URINE Moderate LPF (None Seen); SQUAMOUS EPITHELIAL CELL,UR Many /HPF (0-2)
[2022-04-02 22:30] LABS: ALBUMIN 3.5 g/dL (3.5-5.0); CREATININE 3.3 mg/dL (0.5-1.5); POTASSIUM 4.6 mmol/L (3.5-5.1); TOTAL PROTEIN, SERUM 8.6 g/dL (6.0-8.3)
[2022-04-02] MEDS ORDERED: CEFTRIAXONE 1G VIAL IVP ONE (22:30)
[2022-04-02] MEDS ORDERED: CEFTRIAXONE 1G VIAL ONE (22:35)
[2022-04-02] MEDS ORDERED: INSULIN HUMULIN R 100 UNIT/ML 3ML ONE (22:36)
[2022-04-02] MEDS ORDERED: INSULIN HUMULIN R 100 UNIT/ML 3ML IV ONE ×2 (23:00→23:30)
[2022-04-02 23:30] VITALS: BP 122/72
[2022-04-02] MEDS ORDERED: METRONIDAZOLE 500 MG TABLET PO SCH (23:30)
[2022-04-02] MEDS ORDERED: LEVOFLOXACIN 500 MG TABLET PO SCH (23:30)
[2022-04-02] MEDS ORDERED: METR375C2 PO (23:42)
[2022-04-02] MEDS ORDERED: LEVO500T90 PO (23:42)
== END 2022-04-03 00:03 | disposition home or self-care (01) ==
LOC: EDH 21:23
DX: U07.1 COVID-19 (principal); E11.65 Type 2 diabetes mellitus with hyperglycemia; K52.9 Noninfective gastroenteritis and colitis, unspecified; N28.9 Disorder of kidney and ureter, unspecified; E78.00 Pure hypercholesterolemia, unspecified; E66.01 Morbid (severe) obesity due to excess calories; Z79.1 Long term (current) use of non-steroidal anti-inflammatories (NSAID); Z79.899 Other long term (current) drug therapy; Z68.32 Body mass index [BMI] 32.0-32.9, adult
CPT/HCPCS: 99284; 96374; 96375; 87635; 96361; 84484; 80053; 83690; 85025; 87088; 87804 ×2; 82948; 83605; 81001; 36415; 96376; J1815 ×2; C9803; J7030; J0696; J2405

== ENCOUNTER 2023-05-04 23:54 | Emergency (ER) | payer OTHER ==
[~2023-05-04] VITALS: Ht 162.6 cm; Wt 90.7 kg
[~2023-05-04 23:54] MED LIST changes: +LEVO-70 PO; +METR375C2 PO
[2023-05-05 01:17] VITALS: BP 165/85; PULSE 65; RESP 18; O2SAT 98
[2023-05-05 02:29] LABS: HEMATOCRIT 37.3 % (42-54); MEAN CORPUSCULAR HEMOGLOBIN 28.4 pg (27.0-33.0); MEAN CORPUSCULAR HGB CONC 33.2 g/dL (32.0-36.0); MEAN CORPUSCULAR VOLUME 85.4 fL (79-99); PLATELET COUNT (AUTO) 224 K/uL (130-400); RED BLOOD CELL COUNT(AUTO) 4.37 MIL/uL (4.50-6.20); RED CELL DISTRIBUTION WIDTH 13.2 % (11.0-15.5); WHITE BLOOD COUNT (AUTO) 15.6 K/uL (4.8-10.8)
[2023-05-05 02:38] LABS: CREATININE 1.2 mg/dL (0.5-1.5); POTASSIUM 4.3 mmol/L (3.5-5.1)
[2023-05-05 02:43] LABS: BILIRUBIN,TOTAL 0.3 mg/dL (0.2-1.0); TOTAL PROTEIN, SERUM 7.2 g/dL (6.0-8.3); URIC ACID 6.8 mg/dL (2.6-7.2)
[2023-05-05 03:38] LABS: EOSINOPHILS % (MANUAL) 1 % (1-6); ERYTHROCYTE SEDIMENTATION RATE 57 MM/HR (0-20); LYMPHOCYTES % (MANUAL) 15 % (22-44); MONOCYTES % (MANUAL) 2 % (2-9); SEGMENTED NEUTROPHILS % 82 % (40-70); TOTAL CELLS COUNTED 100
[2023-05-05 03:39] LABS: MAN.DIFF COMMENT-IMPRESSION MANUAL DIFFERENTIAL
[2023-05-05 03:40] LABS: PLATELET MORPHOLOGY COMMENT ADEQUATE; WBC MORPHOLOGY VACUOLATION 1+
[2023-05-05] MEDS ORDERED: IBUP-1493 PO (03:54)
[2023-05-05] MEDS ORDERED: PRED20TA3 PO (03:54)
== END 2023-05-05 04:02 | disposition home or self-care (01) ==
LOC: EDH 23:54
DX: M13.832 Other specified arthritis, left wrist (principal)
CPT/HCPCS: 36415; 73090; 73130; 80053; 84550; 85025; 85651